=== PATIENT | male | born 1965 | race Caucasian/White ===

== ENCOUNTER 2016-07-22 19:12 | Emergency (ER) | payer OTHER ==
[~2016-07-22] VITALS: Ht 177.8 cm; Wt 83.2 kg
[~2016-07-22 19:12] MED LIST: CIPRO500 MG PO; CLEOCIN150 MG PO; CLINDAMYCIN HC300 MG PO; FLEXERIL10 MG PO; NORCO 5/3251 TABLET PO; PERCOCET 10/1 TABLET PO; PERCOCET 5/31 TABLET PO; VICODIN 5-3001 EACH PO; ZOFRAN ODT4 MG PO; ZOFRAN4 MG PO
[2016-07-22 19:58] LABS: HEMATOCRIT 43.1 % (38.0-50.0); MCH 32.6 PG (29.0-34.0); MCHC 33.2 G/DL (30.0-36.0); MCV 98.2 FL (86-99); MEAN PLAT.VOLUME 9.6 uM^3 (9.0-12.4); PLATELET COUNT 362 K/uL (156-360); RBC DIS.WIDTH-CV 12.8 % (11.8-14.6); RED BLOOD COUNT 4.39 M/uL (4.00-5.50); WHITE BLOOD COUNT 14.2 K/uL (4.1-10.2)
[2016-07-22 20:11] LABS: CHLORIDE 111 mEq/L (99-109); POTASSIUM 3.9 mEq/L (3.7-5.4); SODIUM 146 mEq/L (136-147)
[2016-07-22 20:13] LABS: GLUCOSE 85 mg/dL (70-99)
[2016-07-22 20:14] LABS: ANION GAP 15 MEQ/L (2-14)
[2016-07-22 20:15] LABS: TOTAL BILIRUBIN 0.6 mg/dL (0.0-1.0)
[2016-07-22 20:16] LABS: ALKALINE PHOSPHATASE 82 IU/L (3-129); SERUM ETHYL ALCOHOL 299 mg/dL
[2016-07-22 20:17] LABS: GFR ESTIMATE (CALCULATED) > 59 mL/min/
[2016-07-22 20:18] LABS: UREA NITROGEN (BUN) 12 mg/dL (9-23)
[2016-07-22 20:20] LABS: LIPASE 18 U/L (1.0-51.0)
[2016-07-22] MEDS ORDERED: ULTRAM50 MG PO (20:50)
[2016-07-22] MEDS ORDERED: CLINDAMYCIN HC300 MG PO (20:58)
[2016-07-22 21:09] VITALS: BP 114/77
== END 2016-07-22 21:10 | disposition home or self-care (01) ==
LOC: EME → TRA 19:12
PROVIDERS: Emergency Medicine
DX: S02.609A Fracture of mandible, unspecified, initial encounter for closed fracture (principal); S02.5XXA Fracture of tooth (traumatic), initial encounter for closed fracture; S09.90XA Unspecified injury of head, initial encounter; F10.129 Alcohol abuse with intoxication, unspecified; Y90.8 Blood alcohol level of 240 mg/100 ml or more; Y08.02XA Assault by strike by baseball bat, initial encounter; Y07.9 Unspecified perpetrator of maltreatment and neglect; R10.9 Unspecified abdominal pain; F17.200 Nicotine dependence, unspecified, uncomplicated
CPT/HCPCS: 70450; 70486; 71260; 74177; 80053; 83690; 85027; 99281; 99283; G0480; J3010; J7030

== ENCOUNTER 2016-07-26 10:56 | Emergency (ER) | payer OTHER ==
[~2016-07-26] VITALS: Ht 180.3 cm; Wt 82.0 kg
[~2016-07-26 10:56] MED LIST changes: +ULTRAM50 MG PO
[2016-07-26] MEDS ORDERED: NAPROSYN500 MG PO (13:20)
[2016-07-26] MEDS ORDERED: ZOFRAN ODT4 MG PO (13:20)
[2016-07-26 13:25] VITALS: BP 157/87
== END 2016-07-26 13:37 | disposition home or self-care (01) ==
LOC: EME 10:56
DX: F07.81 Postconcussional syndrome (principal); G44.309 Post-traumatic headache, unspecified, not intractable; S02.609A Fracture of mandible, unspecified, initial encounter for closed fracture; S02.2XXA Fracture of nasal bones, initial encounter for closed fracture; Y08.02XA Assault by strike by baseball bat, initial encounter; Z87.891 Personal history of nicotine dependence
CPT/HCPCS: 99281; 99284; J1885